=== PATIENT | female | born 1935 | race Caucasian/White ===

== ENCOUNTER 2017-12-07 20:18 | Emergency (ER) | payer OTHER ==
--- NOTE | 2017-12-07 21:47 | RADIOLOGY REPORT ---
EXAMINATIONS: LEFT HAND 3 VIEWS AND LEFT WRIST 4 VIEWS AND LEFT FOREARM 2 VIEWS CLINICAL INFORMATION: Pain after fall. COMPARISON: None. TECHNIQUE: PA, lateral, oblique views of the left hand were obtained. AP, lateral, oblique, scaphoid views of the left wrist are provided. AP and lateral views of the left forearm are provided. FINDINGS: There is a nondisplaced impacted fracture to the distal left radius. There is soft tissue swelling about the dorsum of the hands. There is degenerative change to the IP and DIP joints as well as the first carpal metacarpal joint. There is mild displacement of the pronator fat pad. There is no elbow joint effusion. IMPRESSION: Impacted nondisplaced fracture to the distal left radius. Degenerative change as stated above.
--- NOTE | 2017-12-07 22:17 | ED GENERAL ADULT ---
History of Present Illness General Chief Complaint: Hand or Wrist Injury Stated Complaint: FALL DOWNSTAIRS, L HAND PAIN PER PT Source: patient, family Exam Limitations: no limitations Allergies Coded Allergies: MDX - Penicillin (01/07/01) Triage Note: PT TO TRIAGE S/P SLIP AND FALL DOWN APPROX 5 STAIRS. PT C/O L FOREARM, WRIST AND HAND PAIN. +CSM, +SWELLING. DENIES NUMBNESS/TINGLING. ICE PACK APPLIED. REPORTS +HEADSTRIKE ON CUSHION, DENIES LOC. DENIES BLOOD THINNERS. Triage Nurses Notes Reviewed? yes HPI: Patient is 82-year-old female with PMH of HTN, hypothyroidism, back and spinal cervical surgery (more than 20 y ago) presented to the ED after a fall. Basically she noted that she was moving to comforter down the stairs and her feet caught in, and she fell. She denied any chest pain, dizziness, shortness of breathing, or any other prodrome before the event. She hit her head over a soft object but she denied any loss of consciousness, she can remember everything, she denied any headache or nausea or vomiting or weakness or change in sensation. She had intermediate pain in the left wrist area (7-8/10), reported limited motion due to pain but denied any weakness or change in sensation in the hand. She denied any pain or any other symptoms in other body parts. Review of systems is negative except loss of 50 pounds in the last year, last she visited her PCP 3 weeks ago and had blood work done for her thyroid after which PCP decrease the dose of levothyroxine (Laboratory work from last month was significant for freet4 of 3.27 and TSH of <0.01.), yet she has not picked a medication list. She denied any anxiety, palpitation, and loses stool. She had colonoscopy done last time 6 years ago. She lives with her , is pretty independent in activities of daily life, denied smoking, intake of alcohol or use of any recreational drugs. (Romulo Correia MD,Yani Bland) Vital Signs & Intake/Output Vital Signs & Intake/Output Vital Signs Date Time Temp Pulse Resp B/P B/P Pulse O2 O2 Flow FiO2 Mean Ox Delivery Rate 12/08 2347 98.2 89 18 122/61 99 Room Air 12/08 2215 Room Air 12/08 2023 98.1 102 18 124/69 97 Room Air (Cash Pedro MD) Past History Travel History Traveled to [place] past 21 day No Medical History Any Pertinent Medical History? see below for history Neurological: NONE EENT: NONE Cardiovascular: hypertension Respiratory: NONE Gastrointestinal: NONE Hepatic: NONE Renal: NONE Musculoskeletal: NONE Psychiatric: NONE Endocrine: hypothyroidism Blood Disorders: NONE Cancer(s): NONE Surgical History Surgical History: lower back and cervical spine fracture more than 20y ago Psychosocial History What is your primary language Irish Tobacco Use: Never used Family History Hx Contributory? No (Romulo Correia MD,Yani Bland) Review of Systems Review of Systems Constitutional: Reports: see HPI. (Romulo Correia MD,Yani Bland) Review of Systems Constitutional: Reports: no symptoms. EENTM: Reports: no symptoms. Respiratory: Reports: no symptoms. Cardiovascular: Reports: no symptoms. GI: Reports: no symptoms. Genitourinary: Reports: no symptoms. Musculoskeletal: Reports: joint pain. Skin: Reports: no symptoms. Neurological/Psychological: Reports: no symptoms. Hematologic/Endocrine: Reports: no symptoms. Immunologic/Allergic: Reports: no symptoms. All Other Systems: Reviewed and Negative (Cash Pedro MD) Physical Exam Physical Exam General Appearance: well developed/nourished, no apparent distress, alert, awake , comfortable Head: atraumatic, normal appearance Eyes: Bilateral: PERRL, EOMI. Ears, Nose, Throat: hearing grossly normal Neck: normal inspection, supple Respiratory: normal breath sounds, no respiratory distress Cardiovascular: regular rate/rhythm Gastrointestinal: soft, non-tender Extremities: as noted above, welling of L distal forearm and wrist decreased motion of L wrist due to pain, motor of fingers and sensoray of distal hand normal, otherwise insignificant Neurologic/Psych: awake, alert, oriented x 3, normal gait Core Measures ACS in differential dx? No CVA/TIA Diagnosis: No Sepsis Present: No Sepsis Focused Exam Completed? No (Romulo Correia MD,Yani Bland) Physical Exam Peripheral Pulses: 4+ carotid (R), 4+ carotid (L) Back: normal inspection, normal range of motion, no vertebral tenderness Reflexes: 2+: bicep (R), bicep (L). Skin: intact, normal color, warm/dry Lymphatic: no anterior cervical ugo (Cash Pedro MD) Progress Differential Diagnoses I considered the following diagnoses in my evaluation of the patient: [L arm fracture, wrist bone fracture, less likely neurovascular complication due to normal exam] Radiology Impression: Impacted fracture of L radius Initial ED EKG: none (Romulo Correia MD,Yani Bland) Differential Diagnoses I considered the following diagnoses in my evaluation of the patient: Plan of Care: Orders Procedure Date/time Status Durable Medical Equipment 12/08 2243 Active Diagnostic Imaging: Viewed by Me: Radiology Read. Discussed w/RAD: Radiology Read. (Cash Pedro MD) Departure Departure Disposition: HOME OR SELF CARE Condition: Stable Clinical Impression Primary Impression: Radius fracture Qualifiers: Radius location: distal Referrals: Barbra GROVES,Adeel Li (PCP/Family) Please follow with your Ortho surgeron, Dr Jaquan Serna during this week. Additional Instructions: Continue to use the splint and sling as instructed. Please follow with your orthopedic surgeon, Dr. Jaquan Garcia during this week Please take tynelol for pain. Please come back to hospital if you have severe pain, weakness, change in sensory or motor function, nausea or vomiting, headache or worsening of any of her symptoms Departure Forms: Customer Survey General Discharge Information Comments The plan of care reviewed with patient for impacted fracture of left radius, patient refused to take any extra pain medication with concern of drowsiness. Patient was instructed to take Tylenol for pain. Sling and were ordered for the left forearm. It was patient's preference to follow with Dr. Jaquan Garcia her orthopedic surgeon. Patient was instructed to come back to hospital if symptoms worsen. Resident Co-Sign Statement Statement: ED Attending supervision documentation- [] I saw and evaluated the patient. I have also reviewed all the pertinent lab results and diagnostic results. I agree with the findings and the plan of care as documented in the Resident's documentation. [] I have reviewed the ED Record and agree with the Resident's documentation. [] Additions or exceptions (if any) to the Resident's note and plan are summarized below: [] (Romulo Correia MD,Yani Bland) Departure Time of Disposition: 2330 Resident Co-Sign Statement Statement: ED Attending supervision documentation- x I saw and evaluated the patient. I have also reviewed all the pertinent lab results and diagnostic results. I agree with the findings and the plan of care as documented in the Resident's documentation. [] I have reviewed the ED Record and agree with the Resident's documentation. [] Additions or exceptions (if any) to the Resident's note and plan are summarized below: [] (Cash Pedro MD) Critical Care Note Critical Care Note Critical Care Time: non-applicable (Cash Pedro MD)
[2017-12-07 23:48] VITALS: BP 122/61
== END 2017-12-07 23:49 ==
LOC: ERH 20:18
DX: S52.502A Unspecified fracture of the lower end of left radius, initial encounter for closed fracture (principal); W10.9XXA Fall (on) (from) unspecified stairs and steps, initial encounter; Y92.89 Other specified places as the place of occurrence of the external cause; Y93.9 Activity, unspecified
CPT/HCPCS: 73090-LT; 73110-LT; 73130-LT